=== PATIENT | male | born 1975 | race African-American/Black ===

== ENCOUNTER 2016-11-12 12:19 | Emergency (ER) | payer OTHER ==
[~2016-11-12] VITALS: Ht 193 cm; Wt 140.6 kg
--- NOTE | 2016-11-12 14:18 | RAD ---
Indication fall. Headaches. Closed head injury Noncontrast images of the head were obtained. No prior imaging is available. The calvarium appears unremarkable. Visualized paranasal sinuses appear normal. There is no subdural or epidural hematoma. There is no mass or midline shift. No hemorrhage is seen. No acute finding is apparent. IMPRESSION: No acute finding seen in the head PQRS Compliance Statement: One or more of the following individualized dose reduction techniques were utilized for this examination: 1. Automated exposure control 2. Adjustment of the mA and/or kV according to patient size 3. Use of iterative reconstruction technique
[2016-11-12] MEDS ORDERED: HYDR-971 PO (14:25)
[2016-11-12] MEDS ORDERED: ONDA4TAB10 PO (14:25)
--- NOTE | 2016-11-12 14:25 | PHYS DOC ---
Past Medical History Past Medical History: A-Fib, CHF, CVA, GERD, Hypertension, Hypothyroid, Other Additional Past Medical Histor: VASOVAGAL SYNCOPE Past Surgical History: Cholecystectomy, Pacemaker, Tonsillectomy, Other Additional Past Surgical Histo: FOOT X3,R CARPAL TUNNEL,CARDIAC ABLATION Alcohol Use: None Drug Use: None Adult General Chief Complaint Chief Complaint: HEAD INJURY/TRAUMA HPI HPI Patient is a 41 year old male presenting to the emergency department for evaluation of headache status post fall. Patient says that he was stepping out of the shower and he slipped and hit his right parietal and occipital area on the ground. He denies any loss of consciousness neck chest abdomen back or extremity pain or tenderness. He not lose consciousness but his primary concern is that he has a headache and he is anticoagulated on eliquis. Patient is in no obvious distress with normal vital signs. Review of Systems Review of Systems Constitutional: Denies fever or chills [] Cardiovascular: No additional information not addressed in HPI [] GI: Denies abdominal pain, nausea, vomiting, bloody stools or diarrhea [] : Denies dysuria or hematuria [] Musculoskeletal: Denies back pain or joint pain [] Integument: Denies rash or skin lesions [] Neurologic: + headache. No focal weakness or sensory changes [] Allergies Allergies Allergies Coded Allergies Type Severity Reaction Last Updated Verified nut - unspecified Allergy Severe ANAPHYLAXIS 11/12/16 No tree nut Allergy Severe ANAPHYLAXIS 11/12/16 No Penicillins Allergy Intermediate HIVES 11/12/16 Yes cefdinir Allergy Mild RASH 11/12/16 Yes iodine Allergy Mild RASH 11/12/16 Yes levofloxacin Allergy Mild RASH 11/12/16 Yes Physical Exam Physical Exam Constitutional: Well developed, well nourished, no acute distress, non-toxic appearance. [] Cardiovascular:Heart rate regular rhythm, no murmur [] Lungs & Thorax: Bilateral breath sounds clear to auscultation [] Abdomen: Bowel sounds normal, soft, no tenderness, no masses, no pulsatile masses. [] Skin: Warm, dry, no erythema, no rash. [] Back: No tenderness, no CVA tenderness. [] Extremities: No tenderness, no cyanosis, no clubbing, ROM intact, no edema. [] Neurologic: Alert and oriented X 3, normal motor function, normal sensory function, no focal deficits noted. [] Current Patient Data Vital Signs Vital Signs Date Time Temp Pulse Resp B/P (MAP) Pulse Ox O2 Delivery O2 Flow Rate FiO2 11/12/16 13:13 70 161/87 (111) 94 Room Air 11/12/16 12:45 98.8 20 98.8 EKG EKG [] Radiology/Procedures Radiology/Procedures Indication fall. Headaches. Closed head injury Noncontrast images of the head were obtained. No prior imaging is available. The calvarium appears unremarkable. Visualized paranasal sinuses appear normal. There is no subdural or epidural hematoma. There is no mass or midline shift. No hemorrhage is seen. No acute finding is apparent. IMPRESSION: No acute finding seen in the head PQRS Compliance Statement: One or more of the following individualized dose reduction techniques were utilized for this examination: 1. Automated exposure control 2. Adjustment of the mA and/or kV according to patient size 3. Use of iterative reconstruction technique DICTATED and SIGNED BY: PATRICIA KILGORE MD DATE: 11/12/16 1412 Course & Med Decision Making Course & Med Decision Making Patient presenting to the emergency department for evaluation of headache status post fall and he is anticoagulated but his head CT is normal. He has repeat normal neurologic exam and he is feeling well overall so he'll be discharged with concussion protocol told to follow with his primary care provider later this week and come back to the ER sooner with any worsening pain weakness or other general concerns. Dragon Disclaimer Dragon Disclaimer This electronic medical record was generated, in whole or in part, using a voice recognition dictation system. Departure Departure Impression: Primary Impression: Headache Disposition: 01 HOME, SELF-CARE Condition: GOOD Referrals: UNKNOWN PCP NAME (PCP) Patient Instructions: Concussion and Brain Injury Additional Instructions: Follow with your primary care provider later this week and come back to the ER sooner with any worsening pain fevers weakness or other general concerns. Scripts Ondansetron (ZOFRAN ODT) 4 Mg Tab.rapdis 4 MG PO BID Y for NAUSEA/VOMITING, #10 TAB Prov: LATRELL FRIED DO 11/12/16 Hydrocodone/Apap 5-325 (NORCO 5-325 TABLET) 1 Each Tablet 1 TAB PO PRN Q6HRS Y for PAIN, #14 TAB 0 Refills Prov: LATRELL FRIED DO 11/12/16 Problem Qualifiers Primary Impression: Headache Headache type: post-traumatic Headache chronicity pattern: acute headache Intractability: not intractable Qualified Codes: G44.319 - Acute post- traumatic headache, not intractable LATRELL FRIED DO Nov 12, 2016 14:25
[2016-11-12 14:27] VITALS: BP 134/78
== END 2016-11-12 14:33 | disposition home or self-care (01) ==
LOC: ER 12:19
DX: G44.319 Acute post-traumatic headache, not intractable (principal); I48.91 Unspecified atrial fibrillation; I11.0 Hypertensive heart disease with heart failure; I50.9 Heart failure, unspecified; K21.9 Gastro-esophageal reflux disease without esophagitis; E03.9 Hypothyroidism, unspecified; Z88.0 Allergy status to penicillin; Z95.0 Presence of cardiac pacemaker; Z90.49 Acquired absence of other specified parts of digestive tract; Z86.73 Personal history of transient ischemic attack (TIA), and cerebral infarction without residual deficits; Z90.89 Acquired absence of other organs; Z91.018 Allergy to other foods; Z88.1 Allergy status to other antibiotic agents; Z88.8 Allergy status to other drugs, medicaments and biological substances; Z79.01 Long term (current) use of anticoagulants; W01.198A Fall on same level from slipping, tripping and stumbling with subsequent striking against other object, initial encounter; Y93.89 Activity, other specified; Y92.89 Other specified places as the place of occurrence of the external cause; Y99.8 Other external cause status
CPT/HCPCS: 70450; 99284-25